=== PATIENT | female | born 1970 | race Caucasian/White ===

== ENCOUNTER 2023-08-27 14:02 | Emergency (ER) | payer OTHER ==
[~2023-08-27] VITALS: Ht 157.5 cm; Wt 71.7 kg
[2023-08-27 16:05] LABS: *BILIRUBIN,URIN NEGATIVE (NEGATIVE); *CLARITY,URINE CLEAR (CLEAR); *COLOR,URINE YELLOW (YELLOW); *KETONES,URINE NEGATIVE (NEGATIVE); *PROTEIN,URINE NEGATIVE (NEGATIVE); *UROBILINOGEN,URINE 0.2 E.U./dl (NORMAL); LEUKOCYTE ESTERASE ,URINE NEGATIVE (NEGATIVE); NITRITE, URINE NEGATIVE (NEGATIVE); UGLUCOSE NEGATIVE (NEGATIVE)
[2023-08-27 16:09] LABS: *BLOOD, URINE TRACE (NEGATIVE)
[2023-08-27 16:32] LABS: *URINE HCG, QUAL NEGATIVE (NEGATIVE)
[2023-08-27] MEDS ORDERED: FLUCONAZOLE 100 MG TABLET PO ONE (17:00)
[2023-08-27] MEDS ORDERED: FLUCONAZOLE 100 MG TABLET ONE (17:04)
[2023-08-27] MEDS ORDERED: CLOT45CR VG (17:06)
[2023-08-27 17:28] VITALS: BP 114/67; O2SAT 100
[2023-08-27 18:51] LABS: RBC,URINE 0-3 /HPF (0-3); WBC,URINE NONE SEEN /HPF (0-3)
[2023-08-27 18:52] LABS: BACTERIA,URINE FEW /HPF (NONE SEEN); SQUAMOUS EPITHELIAL CELL,UR FEW /HPF (NONE SEEN)
== END 2023-08-27 17:29 | disposition home or self-care (01) ==
LOC: ER 14:02
DX: D25.9 Leiomyoma of uterus, unspecified (principal); B37.31 Acute candidiasis of vulva and vagina
CPT/HCPCS: 76856; 84703; A4606; A4663

== ENCOUNTER 2024-11-10 15:29 | Emergency (ER) | payer OTHER ==
[~2024-11-10] VITALS: Ht 157.5 cm; Wt 63.5 kg
[~2024-11-10 15:29] MED LIST: CLOT45CR VG
[2024-11-10] MEDS ORDERED: ACET15SO5 EACH EAR (17:00)
[2024-11-10 17:26] VITALS: BP 122/69; O2SAT 98
== END 2024-11-10 17:29 | disposition home or self-care (01) ==
LOC: ER 15:37
DX: H92.02 Otalgia, left ear (principal)
CPT/HCPCS: A4606; A4663